=== PATIENT | male | born 1990 | race American Indian/Alaskan Native ===

== ENCOUNTER 2020-05-13 11:42 | Emergency (ER) | payer SELFPAY ==
[2020-05-13 11:48] VITALS: BP 116/81
== END 2020-05-13 11:50 | disposition left against medical advice (07) ==
LOC: ED 11:42
DX: R21 Rash and other nonspecific skin eruption (principal); Z53.21 Procedure and treatment not carried out due to patient leaving prior to being seen by health care provider